=== PATIENT | female | born 1995 | race African-American/Black ===

== ENCOUNTER 2017-06-11 07:12 | Emergency (ER) | payer SELFPAY ==
[~2017-06-11] VITALS: Ht 170.2 cm; Wt 100.0 kg
[~2017-06-11 07:12] MED LIST: AMOX875 PO; MMW SSP
[2017-06-11 07:16] VITALS: BP 137/82; PULSE 124; RESP 14; TEMP 99.1; O2SAT 98
[2017-06-11] MEDS ORDERED: IBUPROFEN 800 MG TAB PO ONE (08:15)
--- NOTE | 2017-06-11 08:34 | PD ---
HPI Chief Complaint: Cold / Flu Symptoms Time Seen by Provider: 07:45 Travel History International Travel<30 days: No Contact w/Intl Traveler<30days: No Traveled to known affect area: No History of Present Illness HPI 22-year-old female presents to the emergency Department with complaint of a, cough, chills that onset yesterday. Denies fevers. Denies chest pain, shortness of breath, wheezing, vomiting, diarrhea, abdominal pain. Denies nasal congestion, sore throat, ear pain. Boyfriend has similar symptoms. Symptoms are mild in severity. TheraFlu for symptom management. No known aggravating factors. Allergies to seafood and nuts and multiple fruits. No primary care provider. No distal significant past medical history. Has no medical complaints. No other modifying factors or associated signs and symptoms. PFSH Past Medical History Medical History: Denies Significant Hx Influenza Vaccination: No ?: Not Para: 0 Past Surgical History Surgical History: No Previous Surgery Social History Alcohol Use: No Tobacco Use: No Substance Use: No Allergies-Medications (Allergen,Severity, Reaction): Coded Allergies: No Known Allergies (Unverified Adverse Reaction, Unknown, 06/11/17) Reported Meds & Prescriptions Reported Meds & Active Scripts Active Ibuprofen 800 Mg Tab 800 Mg PO Q6HR PRN Tamiflu (Oseltamivir Phosphate) 75 Mg Cap 75 Mg PO BID 5 Days Review of Systems Except as stated in HPI: all other systems reviewed are Neg Physical Exam Narrative GENERAL: Well-nourished, well-developed female patient, in no acute distress; afebrile, nontoxic-appearing SKIN: Warm and dry. No rash. HEAD: Atraumatic. Normocephalic. EYES: Pupils equal and round. No scleral icterus. No injection or drainage. ENT: Mucosa pink and moist. No erythema or exudates. No uvular edema. No uvular , palatal, or tonsillar deviation. Airway patent. EARS: Bilateral pinnae and external canals appear within normal limits. Bilateral tympanic membranes without erythema, dullness or perforation. NECK: Trachea midline. No lymphadenopathy. CARDIOVASCULAR: Regular rate and rhythm. No murmur appreciated. RESPIRATORY: No accessory muscle use. Clear to auscultation. Breath sounds equal bilaterally. No retractions or tachypnea. GASTROINTESTINAL: Abdomen soft, non-tender, nondistended. Hepatic and splenic margins not palpable. Bowel sounds are active 4 quadrants. MUSCULOSKELETAL: No obvious deformities. No clubbing. No cyanosis. No edema. NEUROLOGICAL: Awake and alert. Oriented 3. No obvious cranial nerve deficits. Motor grossly within normal limits. Normal speech. Moves all extremities. 5/5 strength to all extremities. PSYCHIATRIC: Appropriate mood and affect; insight and judgment normal. Data Data Last Documented VS Vital Signs Date Time Temp Pulse Resp B/P (MAP) Pulse Ox O2 Delivery O2 Flow Rate FiO2 06/11/17 09:42 06/11/17 07:30 Room Air 06/11/17 07:16 99.1 124 14 98 Orders Orders Influenzae A/B Antigen (06/11/17 07:46) Ibuprofen (Motrin) (06/11/17 08:15) Ed Discharge Order (06/11/17 08:58) MDM Medical Decision Making Medical Screen Exam Complete: Yes Emergency Medical Condition: Yes Medical Record Reviewed: Yes Differential Diagnosis Influenza, viral illness, URI Narrative Course 22-year-old female with cold/flu symptoms since yesterday. The patient is afebrile and nontoxic-appearing. Denies fever, vomiting. Heart rate on physical exam is approximately 90 bpm. Influenza and ibuprofen ordered. 0856: Influenza A positive. Tamiflu and ibuprofen prescribed for home. Discussed viral illnesses symptom management. Instructed patient to follow up with primary care provider. Patient verbalizes understanding and agreement with treatment plan. Patient is medically cleared and stable for discharge. Discussed reasons to return to the emergency department. Patient agrees with treatment plan. The patients vital signs are stable and the patient is stable for outpatient follow-up and treatment. Patient discharged home, stable and in no acute distress. Diagnosis Primary Impression: Influenza A Referrals: [facility] Primary Care Physician Patient Instructions: General Instructions, Influenza (ED), Safe Use of Cough and Cold Medicines (ED) Departure Forms: Tests/Procedures, Work Release Special Instructions: No work until fever free for 24 hours Additional Instructions: Ibuprofen or Tylenol as directed and as needed to reduce fever; may alternate ibuprofen and Tylenol as needed every 3 hours to minimize fever [id number] cold/flu medications as directed and as needed for symptom management Get plenty of sleep/rest Drink plenty of fluids to prevent dehydration; such as Gatorade, Powerade, Pedialyte [place] diet to encourage nutrition such as crackers, fruit, applesauce, toast, soup etc. Use an air humidifier/turn off ceiling fans Follow-up with your primary care provider within 1 day Return immediately to the emergency department with worsening of symptoms Med/Other Pt SpecificInfo: Prescription(s) given Scripts Ibuprofen (Ibuprofen) 800 Mg Tab 800 MG PO Q6HR Y for PAIN, #30 TAB 0 Refills Prov: Leticia Willson 06/11/17 Oseltamivir (Tamiflu) 75 Mg Cap 75 MG PO BID for Mgmt Viral Infection for 5 Days, #10 CAP 0 Refills Prov: Leticia Willson 06/11/17 Disposition: 01 DISCHARGE HOME Condition: Stable Leticia Willson Jun 11, 2017 08:34
[2017-06-11] MEDS ORDERED: IBUP1TAB7 PO (08:57)
[2017-06-11] MEDS ORDERED: OSEL75 PO (08:57)
== END 2017-06-11 09:42 | disposition home or self-care (01) ==
LOC: NEPD 07:12
DX: J09.X2 Influenza due to identified novel influenza A virus with other respiratory manifestations (principal)
CPT/HCPCS: 87804; 99283

== ENCOUNTER 2017-07-21 20:24 | Emergency (ER) | payer SELFPAY ==
[~2017-07-21 20:24] MED LIST changes: -AMOX875 PO; +IBUP1TAB7 PO; -MMW SSP; +OSEL75 PO
[2017-07-21 20:27] VITALS: BP 151/85; PULSE 92; RESP 18; TEMP 97.8; O2SAT 100
--- NOTE | 2017-07-21 22:11 | PD ---
HPI Chief Complaint: Skin Problem Time Seen by Provider: 20:26 Travel History International Travel<30 days: No Contact w/Intl Traveler<30days: No Traveled to known affect area: No History of Present Illness HPI Patient is a 22-year-old female presenting to emerge from for evaluation of discoloration to her left lower leg/ankle. Patient states it is not painful, she reports a history of eczema and states this area has been there for months, she reports is itchy, scabby and she ends up picking at it. Symptom onset was gradual, symptoms severity is mild. Symptoms appear chronic in nature. She has no other complaints at this time. Patient denies any pain. PFSH Past Medical History Integumentary: Yes (Eczema) ?: Not LMP: now Para: 0 Social History Alcohol Use: No Tobacco Use: No Substance Use: No Allergies-Medications (Allergen,Severity, Reaction): Coded Allergies: No Known Allergies (Unverified Adverse Reaction, Unknown, 06/11/17) Reported Meds & Prescriptions Reported Meds & Active Scripts Active Ibuprofen 800 Mg Tab 800 Mg PO Q6HR PRN Tamiflu (Oseltamivir Phosphate) 75 Mg Cap 75 Mg PO BID 5 Days Review of Systems Except as stated in HPI: all other systems reviewed are Neg Skin: Positive Rash, Positive Itching, Positive Change in Pigmentation Physical Exam Narrative GENERAL: Well-developed, well-nourished, alert female. Presenting in no acute distress. SKIN: Warm and dry. HEAD: Normocephalic. EYES: No scleral icterus. No injection or drainage. NECK: Supple, trachea midline. No JVD or lymphadenopathy. CARDIOVASCULAR: Regular rate RESPIRATORY: No accessory muscle use. Data Data Last Documented VS Vital Signs Date Time Temp Pulse Resp B/P (MAP) Pulse Ox O2 Delivery O2 Flow Rate FiO2 07/21/17 20:27 97.8 92 18 151/85 (107) 100 [facility] Medical Decision Making Medical Screen Exam Complete: Yes Emergency Medical Condition: Yes Interpretation(s) Vital Signs Date Time Temp Pulse Resp B/P (MAP) Pulse Ox O2 Delivery O2 Flow Rate FiO2 07/21/17 20:27 97.8 92 18 151/85 (107) 100 Differential Diagnosis Cellulitis versus eczema versus contact dermatitis versus other Narrative Course Patient is well-appearing 22-year-old female presenting for evaluation of discoloration eczema to her left lower leg. Patient's vital signs are stable. She is awaiting bed placement. Patient was called be placed in a bed, she was not found in the emergency department. Patient left AMA. Diagnosis Primary Impression: Left against medical advice Jessica Ferrera Jul 21, 2017 22:11
== END 2017-07-21 21:30 | disposition left against medical advice (07) ==
LOC: NED 20:24
DX: Z53.21 Procedure and treatment not carried out due to patient leaving prior to being seen by health care provider (principal); Z79.899 Other long term (current) drug therapy
CPT/HCPCS: 99281